=== PATIENT | male | born 1995 | race African-American/Black ===

== ENCOUNTER 2023-10-24 13:47 | Emergency (ER) | payer MEDICAID ==
[~2023-10-24] VITALS: Ht 175.3 cm; Wt 79.2 kg
[2023-10-24 17:05] VITALS: BP 156/107; PULSE 69; RESP 18; O2SAT 96
[2023-10-24] MEDS ORDERED: IBUP-1455 PO (17:11)
[2023-10-24] MEDS ORDERED: ACE3T PO (17:11)
[2023-10-24] MEDS ORDERED: AMOX875T4 PO (17:11)
[2023-10-24 17:28] VITALS: TEMP 96.9
[2023-10-24] MEDS: AMOXICILLIN/CLAVUL 875 MG TAB PO ONE (17:28)
[2023-10-24] MEDS: KETOROLAC TROMETH 60MG/2ML VIAL IM ONE (17:28)
[2023-10-24] MEDS: ACETAMINOPHEN 500 MG TAB PO ONE (17:28)
== END 2023-10-24 17:45 | disposition home or self-care (01) ==
LOC: ER 13:47
DX: K04.7 Periapical abscess without sinus (principal)
CPT/HCPCS: 96372; 99283; J1885